=== PATIENT | female | born 1990 | race Caucasian/White ===

== ENCOUNTER 2016-07-21 08:28 | Inpatient (IN) | payer OTHER ==
[~2016-07-21] VITALS: Ht 157.5 cm; Wt 78.0 kg
[2016-07-21] VITALS (7 sets, daily range): BP systolic 104–116; BP diastolic 55–72; PULSE 76–102; RESP 18; TEMP 98; O2SAT 99
[~2016-07-21 08:28] MED LIST: PREN1CAP28; ZANT150T2 PO
[2016-07-21] MEDS ORDERED: LACTATED RINGER'S 1000 ML INJ 1,000 ML IV ONE (08:40)
--- NOTE | 2016-07-21 09:02 | HHI.HP ---
HPI Chief Complaint scheduled Date Seen: Jul 21, 2016 Time Seen: 08:39 (Clement Sherman MD R1) Travel History International Travel<30 Days: No Contact w/Intl Traveler<30Days: No (Clement Sherman MD R1) History of Present Illness HPI 26 y/o at 39/2 presents for scheduled . She presents after initially wanting to , but due to no progression of baby , they decided to proceed with repeat . Her OB care is provided by Wendie [facility]. Her previous was on 08/31/13 for twins. Her last was complicated by oligohydramnios and pre-eclampsia. No complications this . Would like a tubal ligation today as well. Denies vaginal bleeding, loss of fluids, contractions. Endorses movement. Denies headache, lightheadedness/dizziness, chest pain, SOB, dysuria, leg pain/swelling. Para: 1 : 2 (Clement Sherman MD R1) History Past Medical History Medical History: Denies Significant Hx (Clement Sherman MD R1) Obstetric History Obstetric History Previous , pre-term twins at 35 weeks, doing well Previous complicated by oligohydramnios and preeclampsia No complications this . (Clement Sherman MD R1) Past Surgical History Narrative Surgical 08/31/13 [place] teeth removal (Clement Sherman MD R1) Family History Family History: Negative (Clement Sherman MD) Social History Alcohol Use: No Tobacco Use: No Substance Abuse: No (Clement Sherman MD R1) Allergies-Medications (Allergen,Severity, Reaction): Coded Allergies: No Known Allergies (Verified , 07/21/16) Home Meds Active Scripts Ranitidine (Zantac)150 Mg [id number] Mg PO BID #60 TAB Ref 6 Prov:Carito Bingham 05/09/16 Reported Medications Mv & Min W/Fe Fumarat ( Multi + Dha 27-0.8-250 mg)1 Cap Cap 07/11/16 Review of Systems General / Constitutional: Weight Gain, No: Fever, Weight Loss, Chills Eyes: No: Blurred Vision, Visual changes HENT: No: Headaches, Vertigo, Lightheadedness Cardiovascular: No: Irregular Rhythm, Chest Pain or Discomfort, Palpitations, Tachycardia Respiratory: No: Cough, Short of Breath Gastrointestinal: No: Nausea, Vomiting, Diarrhea, Abdominal Pain, Constipation Genitourinary: No: Urgency, Frequency, Dysuria, Oliguria, Pelvic Pain, Discharge, Vaginal Bleeding Musculoskeletal: No: Limited ROM, Weakness, Edema Skin: No Rash, No Itching, No Dryness, No Lumps Neurologic: No: Weakness, Dizziness, Syncope, Headache Psychiatric: No: Anxiety, Depression Endocrine: No: Heat Intolerance, Cold Intolerance Hematologic/Lymphatic: No Easy Bruising, No Lymph Node Enlargement (Clement Sherman MD R1) Physical Exam Narrative GENERAL: Well-nourished, well-developed patient. SKIN: Warm and dry. HEAD: Normocephalic and atraumatic. EYES: No scleral icterus. No injection or drainage. ENT: No nasal drainage noted. Mucous membranes pink. Airway patent. NECK: Supple, trachea midline. No JVD. CARDIOVASCULAR: Regular rate and rhythm without murmurs, gallops, or rubs. RESPIRATORY: Breath sounds equal bilaterally. No accessory muscle use. ABDOMEN/GI: Abdomen soft, non-tender, bowel sounds present, no rebound, no guarding Gravid to 39 weeks size Fundal Height: 39 GENITOURINARY: Uterine Contractions: none FHT's: Category: 1 Baseline: 135 Reactive: yes Variability: moderate Decels: none EXTREMITIES: No cyanosis or edema. BACK: Nontender without obvious deformity. No CVA tenderness. NEUROLOGICAL: Awake and alert. Motor and sensory grossly within normal limits. Five out of 5 muscle strength in all muscle groups. Normal speech. (Clement Sherman MD R1) Narrative Prior incision well-healed LE: No edema, NT (Amanda Knutson MD) Data Data Vital Signs Reviewed: Yes Orders Admit To Inpatient (07/21/16 ) Code Status (07/21/16 08:40) Vital Signs (Adult) .ON ADMISSION (07/21/16 08:40) Activity Oob Ad Perla (07/21/16 08:40) ^ Heart (07/21/16 08:40) Urinary Catheter Management CONNIE.Q8H (07/21/16 08:40) ^ Preps (07/21/16 08:40) Scd / Mateo / Foot Pump CONNIE.QSHIFT (07/21/16 08:40) ^ Ultrasound For Locatio (07/21/16 08:40) Diet Npo (07/21/16 Breakfast) Lactated Ringer's 1000 Ml Inj (Lr 1000 M (07/21/16 08:40) Lactated Ringer's 1000 Ml Inj (Lr 1000 M (07/21/16 09:10) Citric Acid-Sodium Citrate Liq (Bicitra (07/21/16 10:15) Type And Screen (07/21/16 08:40) Complete Blood Count With Diff (07/21/16 08:40) Urinalysis - C+S If Indicated (07/21/16 08:40) Cefazolin Inj (Ancef Inj) (07/21/16 09:45) Inpatient Certification (07/21/16 ) Specimen To Be Collected PRN (07/21/16 08:40) (Clement Sherman MD R1) Vital Signs Reviewed: Yes Labs Laboratory Tests Test 07/21/16 09:14 White Blood Count 8.7 TH/MM3 (4.0-11.0) Red Blood Count 3.77 MIL/MM3 (4.00-5.30) Hemoglobin 11.2 GM/DL (11.6-15.3) Hematocrit 33.2 % (35.0-46.0) Mean Corpuscular Volume 88.1 FL (80.0-100.0) Mean Corpuscular Hemoglobin 29.6 PG (27.0-34.0) Mean Corpuscular Hemoglobin 33.6 % Concent (32.0-36.0) Red Cell Distribution Width 15.2 % (11.6-17.2) Platelet Count 257 TH/MM3 (150-450) Mean Platelet Volume 9.6 FL (7.0-11.0) Neutrophils (%) (Auto) 71.2 % (16.0-70.0) Lymphocytes (%) (Auto) 22.1 % (9.0-44.0) Monocytes (%) (Auto) 5.9 % (0.0-8.0) Eosinophils (%) (Auto) 0.5 % (0.0-4.0) Basophils (%) (Auto) 0.3 % (0.0-2.0) Neutrophils # (Auto) 6.2 TH/MM3 (1.8-7.7) Lymphocytes # (Auto) 1.9 TH/MM3 (1.0-4.8) Monocytes # (Auto) 0.5 TH/MM3 (0-0.9) Eosinophils # (Auto) 0.0 TH/MM3 (0-0.4) Basophils # (Auto) 0.0 TH/MM3 (0-0.2) CBC Comment DIFF FINAL Differential Comment Urine Color YELLOW (YELLW/STRAW) Urine Turbidity HAZY (CLEAR) Urine pH 6.5 (5.0-8.5) Urine Specific [place] 1.022 (1.002-1.035) Urine Protein TRACE mg/dL (NEG-TRACE) Urine Glucose (UA) NEG mg/dL (NEG) Urine Ketones NEG mg/dL (NEG) Urine Occult Blood NEG (NEG) Urine Nitrite NEG (NEG) Urine Bilirubin NEG (NEG) Urine Urobilinogen LESS THAN 2.0 MG/DL (LESS THAN 2.0) Urine Leukocyte Esterase MOD (NEG) Urine RBC 1 /hpf (0-3) Urine WBC 4 /hpf (0-5) Urine Squamous Epithelial 4 /hpf (0-5) Cells Urine Bacteria MOD /hpf (NONE) Urine Hyaline Casts 1 /lpf (RARE) Urine Mucus FEW /lpf (OCC) Microscopic Urinalysis Comment CULTURE INDICATED (Amanda Knutson MD) Assessment/Plan Assessment and Plan 26 y/o at 39/2 presents for scheduled . 1) IUP with scheduled - Continuous FHT - Monitor vitals - Ancef pre-op - UA - Plan for (Clement Sherman MD R1) Attending Attestation 39 weeks desires repeat Reviewed risks of surgery including but not limited to infection, bleeding, need for blood transfusion, adhesions or scarring, injury to surrounding organs such as the bladder or bowl. Patient desired tubal ligation, but consent papers are less than 30 days old. She and her plan of vasectomy or laparoscopic tubal ligation. All questions answered. (Amanda Knutson MD) Clement Sherman MD R1 Jul 21, 2016 09:02 Amanda Knutson MD Jul 21, 2016 10:23
[2016-07-21] MEDS: LACTATED RINGER'S 1000 ML INJ 1,000 ML IV SCH ×3 (09:12→22:30)
[2016-07-21 09:38] LABS: BACTERIA, URINE MOD /hpf; BLOOD, URINE NEG (NEG); GLUCOSE,URINE NEG (NEG); HYALINE CAST, URINE 1 /lpf (RARE); KETONE, URINE NEG (NEG); MUCUS URINE FEW /lpf (OCC); NITRITE,URINE NEG (NEG); PH, URINE 6.5 (5.0-8.5); SQUAMOUS EPITHELIAL CELL URINE 4 /hpf (0-5); URINE COLOR YELLOW (YELLW/STRAW)
[2016-07-21 09:39] LABS: COMMENT (UR) CULTURE INDICATED; CULTURE IF INDICATED CULTURE INDICATED
[2016-07-21 10:11] LABS: AUTOMATED NEUTROPHIL # 6.2 TH/MM3 (1.8-7.7); BASOPHIL % 0.3 % (0.0-2.0); EOSINOPHIL % 0.5 % (0.0-4.0); HEMATOCRIT 33.2 % (35.0-46.0); HEMO FLAGS DIFF FINAL; LYMPH % 22.1 % (9.0-44.0); LYMPHOCYTE # 1.9 TH/MM3 (1.0-4.8); MEAN CELL VOLUME 88.1 FL (80.0-100.0); MEAN CORPUSCULAR HEMOGLOBIN 29.6 PG (27.0-34.0); MEAN CORPUSCULAR HGB CONC 33.6 % (32.0-36.0); MONO % 5.9 % (0.0-8.0); NEUT % 71.2 % (16.0-70.0); PLATELET COUNT 257 TH/MM3 (150-450); RED BLOOD COUNT 3.77 MIL/MM3 (4.00-5.30); RED CELL DISTRIBUTION WIDTH 15.2 % (11.6-17.2); WHITE BLOOD COUNT 8.7 TH/MM3 (4.0-11.0)
[2016-07-21] MEDS ORDERED: OXYTOCIN 10 UNIT/ML AMP ONE (10:13)
[2016-07-21] MEDS ORDERED: ceFAZolin INJ 1,000 MG VIAL ONE (10:14)
[2016-07-21] MEDS ORDERED: ceFAZolin 2 GM PREMIX 50 ML IV SCH (10:15)
[2016-07-21] MEDS ORDERED: CITRIC ACID-SODIUM CITRATE LIQ 30 ML UDC PO SCH (10:15)
[2016-07-21] MEDS ORDERED: EPIDURAL-DO NOT ADMINISTER ANTICOAGULANTS XX PRN (10:30)
[2016-07-21] MEDS ORDERED: EPIDURAL-NO SYSTEMIC NARCOTICS XX PRN (10:30)
[2016-07-21] MEDS ORDERED: EPIDURAL-DIPHENHYDRAMINE HCL 50 MG/ML VIAL IV PUSH PRN (10:30)
[2016-07-21] MEDS ORDERED: EPIDURAL-NALOXONE HCL 0.4 MG/ML AMP IV PRN (10:30)
[2016-07-21] MEDS ORDERED: EPIDURAL-DIPHENHYDRAMINE HCL 50 MG CAP PO PRN (10:30)
[2016-07-21] MEDS ORDERED: MORPHINE SULFATE PF 5 MG/10 ML VIAL ONE (11:24)
[2016-07-21] MEDS ORDERED: ONDANSETRON HCL 4 MG/2 ML VIAL ONE (11:24)
[2016-07-21] MEDS ORDERED: ONDANSETRON HCL 4 MG/2 ML VIAL IV PUSH PRN (11:45)
[2016-07-21] MEDS ORDERED: SIMETHICONE 80 MG CHEWABLE TAB PO PRN (11:45)
[2016-07-21] MEDS ORDERED: OXYTOCIN 30 UNITS-500ML PREMIX 500 ML IV ONE (11:45)
[2016-07-21] MEDS: SODIUM CHLORIDE 0.9% FLUSH 5 ML FLUSH IV SCH ×3 (11:45→20:32)
--- NOTE | 2016-07-21 11:46 | PD.OP ---
Operative Report Date of Surgery: Jul 21, 2016 Preoperative Diagnosis: Postoperative Diagnosis: Procedure: Repeat Surgeon: Amanda Knutson Heater Planer Operator(s): Lockmaker Operation and Findings: OPERATIVE REPORT PREOPERATIVE DIAGNOSIS: Term 39 weeks Prior POSTOPERATIVE DIAGNOSIS: Same as above Omental Adhesions PROCEDURE(S) PERFORMED: Repeat Low Transverse Uterine Incision Lysis of Adhesions SURGEON: Amanda Knutson MD COMMUNITY DEVELOPMENT SPECIALIST(S): Lockmaker Ankur Mcdowell ANESTHESIA: Spinal SPECIMEN(S) TO LAB: Cord blood EBL: 500mL UOP: clear IVF: Crystalloid DRAINS: Howell DRESSINGS: ABD dressing COMPLICATIONS: None apparent INDICATIONS: Desired Repeat OPERATIVE FINDINGS: Normal uterus, ovaries, tubes. Omental adhesions to anterior uterus. Viable male, 9 and 9, 3645g DESCRIPTION: The risks, benefits, indications and alternatives of the procedure were reviewed with the patient and informed consent was obtained. The patient was taken to the operating room where spinal anesthesia was found to be adequate. She was prepared and draped in the normal sterile fashion in the dorsal supine position with a leftward tilt. A Pfannenstiel skin incision was made with the scalpel over her prior incision. The incision was then carried through the underlying layer of fascia with the Bovie. The fascia was incised in the midline and the incision extended laterally with the Betts scissors. The superior aspect of the fascial incision was grasped with the Jayce clamps, elevated, and the underlying rectus muscles dissected off bluntly and using the Bovie. In a similar fashion the inferior aspect of this incision was grasped and the rectus muscles dissected off of the fascia. The rectus muscles were in the midline and the peritoneum entered bluntly over a filmy area. The bladder blade was placed and a bladder flap made with the Metzenbaum scissors. A bladder flap created digitally with replacement of the bladder blade. The lower uterine segment was incised in a transverse fashion with the scalpel. The uterine incision was extended laterally manually. Clear fluid was noted on amniotomy. The infants head and shoulders were delivered without. The cord was double clamped and cut. The was handed to the waiting pediatric team. Cord blood was obtained. The placenta was then removed manually, was intact and grossly normal. The uterus was exteriorized and the omental adhesions were lysed. Hemostasis was noted on the anterior uterus and the omental segment. The uterus was cleared of all clots and debris. The uterine incision was closed with a running, locking layer of 0-Chromic. Hemostasis was noted. The uterus was returned to the abdomen, inspected again and noted to be hemostatic. The gutters were irrigated and cleared of all clots and debris. The peritoneal fascia and muscle bellies were hemostatic. The fascia was re- approximated from the left to the right corner in a running fashion with 0- Vicryl. The subcutaneous space was irrigated and hemostatic. Pacheco's Fascia was approximated with 3-0 Vicryl. The skin approximated with 3-0 Monocryl. The patient tolerated the procedure well. Sponge, lap and needle counts were correct x 2. Ancef 2gm IVPB was given prior to the procedure. Pitocin 30 units in her regular IV fluids was given after placenta delivery. The patient was taken to the recovery unit in good condition. There were no operative complications. Amanda Knutson MD Department of Obstetrics and Gynecology Amanda Knutson MD Jul 21, 2016 11:46
[2016-07-21] MEDS ORDERED: OXYTOCIN 30 UNITS-500ML PREMIX 500 ML ONE (12:08)
[2016-07-21] MEDS ORDERED: SODIUM CHLORIDE 0.9% FLUSH 5 ML FLUSH ONE (12:08)
[2016-07-21] MEDS ORDERED: KETOROLAC TROMETHAMINE 30 MG/ML (IVP) VIAL ONE (12:08)
[2016-07-21] MEDS: KETOROLAC TROMETHAMINE 30 MG/ML (IVP) VIAL IV PUSH SCH ×2 (12:10→18:15)
[2016-07-21] MEDS: SODIUM CHLORIDE 0.9% FLUSH 5 ML FLUSH IV PRN ×2 (15:19→18:16)
[2016-07-21] MEDS ORDERED: LACTATED RINGER'S 1000 ML INJ 1,000 ML IV SCH (16:31)
[2016-07-21] MEDS ORDERED: OXYTOCIN 30 UNITS-500ML PREMIX 500 ML IV PRN (21:45)
[2016-07-21] MEDS: oxyCODONE/ACETAMINOPHEN 5 MG/325 MG TAB PO PRN (23:21)
[2016-07-22] MEDS: KETOROLAC TROMETHAMINE 30 MG/ML (IVP) VIAL IV PUSH SCH ×2 (00:33→06:34)
[2016-07-22] MEDS: SODIUM CHLORIDE 0.9% FLUSH 5 ML FLUSH IV PRN ×2 (00:34→06:35)
[2016-07-22] MEDS: LACTATED RINGER'S 1000 ML INJ 1,000 ML IV SCH (05:04)
[2016-07-22 05:07] LABS: AUTOMATED NEUTROPHIL # 9.4 TH/MM3 (1.8-7.7); BASOPHIL % 0.2 % (0.0-2.0); EOSINOPHIL % 0.2 % (0.0-4.0); HEMATOCRIT 25.4 % (35.0-46.0); HEMO FLAGS DIFF FINAL; LYMPH % 16.1 % (9.0-44.0); MEAN CELL VOLUME 88.7 FL (80.0-100.0); MEAN CORPUSCULAR HEMOGLOBIN 29.7 PG (27.0-34.0); MEAN CORPUSCULAR HGB CONC 33.5 % (32.0-36.0); MONO % 7.8 % (0.0-8.0); NEUT % 75.7 % (16.0-70.0); PLATELET COUNT 206 TH/MM3 (150-450); RED BLOOD COUNT 2.86 MIL/MM3 (4.00-5.30); RED CELL DISTRIBUTION WIDTH 15.3 % (11.6-17.2); WHITE BLOOD COUNT 12.4 TH/MM3 (4.0-11.0)
[2016-07-22] MEDS: oxyCODONE/ACETAMINOPHEN 5 MG/325 MG TAB PO PRN ×5 (05:07→21:33)
[2016-07-22] MEDS: DOCUSATE SODIUM 50 MG/SENNA 8.6 MG TAB PO PRN ×2 (05:07→19:57)
--- NOTE | 2016-07-22 07:46 | HHI.OB ---
Subjective Remarks 26 year old POD 1 after . Doing well. Ambulating. Lochia is minimal. Pain is well controlled. Desires tubal ligation. Will follow up with [facility]. (Arnold Godwin MD R2) Remarks Pain controlled with Toradol, starting to pass flatus, voiding well. Ambulating ok. well. tolerating a regular diet. (Amanda Knutson MD) Objective Vitals/I&O Vital Signs Date Time Temp Pulse Resp B/P Pulse Ox O2 Delivery O2 Flow Rate FiO2 07/21/16 18:25 18 07/21/16 17:30 18 07/21/16 16:40 98.0 18 07/21/16 16:40 80 104/55 07/21/16 12:04 76 18 109/58 99 07/21/16 11:52 89 18 114/72 99 07/21/16 11:44 102 18 113/71 99 07/21/16 10:07 87 116/71 (Arnold Godwin MD R2) Result Diagram: 07/22/16 4742 Objective Remarks GENERAL: Well-nourished, well-developed patient. CARDIOVASCULAR: Regular rate and rhythm without murmurs, gallops, or rubs. RESPIRATORY: Breath sounds equal bilaterally. No accessory muscle use. ABDOMEN/GI: Abdomen soft, non-tender, bowel sounds present. Incision: Clean, dry and intact. Fundus: Firm, non-tender at umbilicus. GENITOURINARY: Light to moderate bleeding. EXTREMITIES: No cyanosis or edema, non-tender, without signs of DVT. Medications and IVs Current Medications Medications (Trade) Dose Ordered Sig/Kristy Route Start Time Stop Time Status Last Admin Lactated Ringer's 1,000 ml @ 150 mls/hr Q6H40M IV 07/21/16 09:10 07/21/16 18:16 (Lr 1000 ml Inj) 1,000 ml @ 100 mls/hr Q10H IV 07/21/16 16:31 07/22/16 12:30 (NS Flush) 2 ml BID IV 07/21/16 11:45 07/21/16 12:12 (NS Flush) 2 ml UNSCH PRN IV 07/21/16 11:45 07/22/16 06:35 (Mylicon Chew) 80 mg QID PRN PO 07/21/16 11:45 (Motrin) 600 mg Q6H PRN PO 07/22/16 11:45 (Percocet 5-325 Mg) 1 tab Q4H PRN PO 07/21/16 11:45 07/22/16 05:07 (Percocet 5-325 Mg) 2 tab Q4H PRN PO 07/21/16 11:45 (Blessing-Colace) 2 tab Q12H PRN PO 07/21/16 11:45 07/22/16 05:07 (M-M-R Ii Inj) 0.5 ml ONCE ONCE SQ 07/22/16 16:00 07/22/16 16:01 (Boostrix Inj) 0.5 ml ONCE ONCE IM 07/22/16 16:00 07/22/16 16:01 (Zofran Inj) 4 mg Q6H PRN IV PUSH 07/21/16 11:45 07/21/16 15:19 (Toradol Inj) 30 mg Q6HR IV PUSH 07/21/16 12:00 07/22/16 11:59 07/22/16 06:34 Miscellaneous Information NO SYSTEMIC NARCOTICS TO BE GIVEN FO... UNSCH PRN XX 07/21/16 10:30 07/22/16 10:29 (Narcan Inj) 0.4 mg UNSCH PRN IV 07/21/16 10:30 07/22/16 10:29 (Benadryl Inj) 25 mg Q6H PRN IV PUSH 07/21/16 10:30 07/22/16 10:29 (Benadryl) 50 mg Q6H PRN PO 07/21/16 10:30 07/22/16 10:29 Miscellaneous Information ALL NURSING DEPARTMENTS UNSCH PRN XX 07/21/16 10:30 07/22/16 10:29 (Flu (Quadrivalent) Vaccine Inj) 0.5 ml ONCE ONCE IM 07/22/16 10:00 07/22/16 10:01 (Arnold Godwin MD R2) Other Results Vital Signs Date Time Temp Pulse Resp B/P Pulse Ox O2 Delivery O2 Flow Rate FiO2 07/21/16 18:25 18 07/21/16 16:40 98.0 07/21/16 16:40 80 104/55 07/21/16 12:04 99 (Amanda Knutson MD) Assessment/Plan Assessment and Plan 26 y/o Post op day 1 after - Ibuprofen, percocet for pain control - Stool softeners for constipation - Tubal ligation to be scheduled with OB - Encourage - Pelvic rest - Will follow with [facility] (Arnold Godwin MD R2) Attending Attestation POD #1 s/p repeat Doing well well Continue PP care and observation Patient seen and examined with Dr. Sherman (Amanda Knutson MD) Arnold Godwin MD R2 Jul 22, 2016 07:46 Amanda Knutson MD Jul 22, 2016 08:43
[2016-07-22] MEDS ORDERED: INFLUENZA VIRUS VACCINE (QUADRIVALENT) 0.5 ML SYR IM ONE (10:00)
[2016-07-22 14:55] VITALS: BP 103/59; PULSE 97; RESP 18; TEMP 97.7
[2016-07-22] MEDS ORDERED: MEASLES, MUMPS, RUBELLA VACCINE 0.5 ML VIAL SQ ONE (16:00)
[2016-07-22] MEDS ORDERED: DIPHTH/TETANUS/ACEL PERTUSSIS (BOOSTER) 0.5 ML VIAL/PFS IM ONE (16:00)
[2016-07-22] MEDS: IBUPROFEN 600 MG TAB PO PRN (16:34)
[2016-07-22 19:40] VITALS: BP 115/71; PULSE 104; RESP 16; TEMP 98.6
[2016-07-23] MEDS: IBUPROFEN 600 MG TAB PO PRN ×2 (01:30→11:30)
[2016-07-23] MEDS: oxyCODONE/ACETAMINOPHEN 5 MG/325 MG TAB PO PRN ×3 (01:31→11:30)
--- NOTE | 2016-07-23 07:18 | HHI.OB ---
Subjective Post Operative Day: 2 Remarks Postoperative day number 2. AFVSS overnight. Pain controlled. Incision not draining. Decreased lochia. Denies dysuria. No breast tenderness. She is feeding the baby via breast and bottle. Appetite good. No nausea or vomiting. Endorses flatus. No bowel movement. Ambulating well. Denies calf pain, shortness of breath, or cough. Otherwise, she is doing well this morning and has no other complaints. (Clement Sherman MD R1) Objective Vitals/I&O Vital Signs Date Time Temp Pulse Resp B/P Pulse Ox O2 Delivery O2 Flow Rate FiO2 07/22/16 19:40 98.6 104 16 115/71 07/22/16 17:35 18 07/22/16 17:35 18 07/22/16 14:55 97.7 97 18 103/59 07/22/16 12:30 16 (Clement Sherman MD R1) Result Diagram: 07/22/16 0422 Other Results Vital Signs Date Time Temp Pulse Resp B/P Pulse Ox O2 Delivery O2 Flow Rate FiO2 07/21/16 18:25 18 07/21/16 16:40 98.0 07/21/16 16:40 80 104/55 07/21/16 12:04 99 Objective Remarks GENERAL: Well-nourished, well-developed patient. CARDIOVASCULAR: Regular rate and rhythm without murmurs, gallops, or rubs. RESPIRATORY: Breath sounds equal bilaterally. No accessory muscle use. ABDOMEN/GI: Abdomen soft, non-tender, bowel sounds present. Incision: Clean, dry and intact. Fundus: Firm, non-tender at umbilicus. GENITOURINARY: Light to moderate bleeding. EXTREMITIES: No cyanosis or edema, non-tender, without signs of DVT. Medications and IVs Current Medications Medications (Trade) Dose Ordered Sig/Kristy Route Start Time Stop Time Status Last Admin (Lr 1000 ml Inj) 1,000 ml @ 150 mls/hr Q6H40M IV 07/21/16 09:10 07/21/16 18:16 (NS Flush) 2 ml BID IV 07/21/16 11:45 07/21/16 12:12 (NS Flush) 2 ml UNSCH PRN IV 07/21/16 11:45 07/22/16 06:35 (Mylicon Chew) 80 mg QID PRN PO 07/21/16 11:45 (Motrin) 600 mg Q6H PRN PO 07/22/16 11:45 07/23/16 01:30 (Percocet 5-325 Mg) 1 tab Q4H PRN PO 07/21/16 11:45 07/22/16 21:33 (Percocet 5-325 Mg) 2 tab Q4H PRN PO 07/21/16 11:45 07/23/16 07:05 (Blessing-Colace) 2 tab Q12H PRN PO 07/21/16 11:45 07/22/16 19:57 (Zofran Inj) 4 mg Q6H PRN IV PUSH 07/21/16 11:45 07/21/16 15:19 (Clement Sherman MD R1) Assessment/Plan Assessment and Plan 26 y/o Post op day 2 after -Continue routine care. -Percocet and Motrin PRN pain. -Encouraged OOB. Advised pelvic rest for 6 wks. Will need a f/u appt. in 1 wk for incision check. -Re: ctrl, she would like tubal ligation. -D/c in 1-2 more days. [facility] OB attending (Clement Sherman MD R1) Attending Attestation Patient seen and examined with the resident under direct supervision, I agree with the assessment and plan. (Adrian Bearden MD) Clement Sherman MD R1 Jul 23, 2016 07:17 Adrian Bearden MD Jul 25, 2016 11:23
[2016-07-23] MEDS ORDERED: OXYC1TAB63 PO (07:22)
[2016-07-23] MEDS ORDERED: IBUP-232 PO (07:22)
[2016-07-23] MEDS ORDERED: SIME80CH PO (07:22)
[2016-07-23] MEDS ORDERED: SENN1TAB PO (07:22)
--- NOTE | 2016-07-23 07:24 | HHI.DCPOC ---
Discharge Care Plan Diagnosis: (1) Vaginal delivery Goals to Promote Your Health * To prevent worsening of your condition and complications * To maintain your health at the optimal level Directions to Meet Your Goals Take your medications as prescribed Follow your dietary instruction Follow activity as directed Keep your appointments as scheduled Take your immunizations and boosters as scheduled If your symptoms worsen call your PCP, if no PCP go to Urgent Care Center or Emergency Room Smoking is Dangerous to Your Health. Avoid second hand smoke Call the 24-hour hour crisis hotline for domestic abuse at Attestation Patient seen and examined with the resident under direct supervision, I agree with the assessment and plan. Arnold Godwin MD R2 Jul 23, 2016 07:24 Adrian Bearden MD Jul 25, 2016 11:25
[2016-07-23 09:00] VITALS: BP 121/67; PULSE 106; RESP 18; TEMP 98.2
[2016-07-23] MEDS: DOCUSATE SODIUM 50 MG/SENNA 8.6 MG TAB PO PRN (11:29)
[2016-09-08] MEDS ORDERED: NORA0.35 PO (11:32)
== END 2016-07-23 13:16 | disposition home or self-care (01) | DRG 766 ==
LOC: H2EB 08:28 → H1EA 12:52
PROVIDERS: ADMIT Obstetrics & Gynecology; ATTEND Obstetrics & Gynecology
PROC: 10D00Z1 Extraction of Products of Conception, Low, Open Approach (ICD-10-PCS; principal; 2016-07-21)
PROC: 0UN40ZZ Release Uterine Supporting Structure, Open Approach (ICD-10-PCS; 2016-07-21)
DX: O62.1 Secondary uterine inertia (principal); K66.0 Peritoneal adhesions (postprocedural) (postinfection); O34.219 Maternal care for unspecified type scar from previous cesarean delivery; Z3A.39 39 weeks gestation of pregnancy; Z37.0 Single live birth
CPT/HCPCS: 59025; 81001; 85025; 86850; 86900; 86901; 87086; 90686; 90715; J0690; J1885; J2274; J2405; J2590; J7120; Q2038